=== PATIENT | female | born 1975 | race Caucasian/White ===

== ENCOUNTER 2021-12-12 16:38 | Emergency (ER) | payer OTHER ==
[2021-12-12] MEDS ORDERED: Sodium Chloride 0.9% 1000 ML 1,000 ML IV SCH (17:15)
[2021-12-12] MEDS ORDERED: TORAdol 30 mg Injection IV ONE (17:17)
[2021-12-12] MEDS ORDERED: TORAdol 30 mg Injection ONE (17:20)
[2021-12-12] MEDS ORDERED: Sodium Chloride 0.9% 1000 ML 1,000 ML ONE (17:21)
[2021-12-12 17:23] LABS: Absolute Neutrophil Ct (ANC) 5.19 x10^3/uL (1.4-6.9); Basophil (Absolute #) 0.06 x10^3/uL (0-0.4); Eosinophil % 3.1 % (0.00-5.0); Hematocrit 39.5 % (35-47); Hemoglobin 12.7 g/dL (12.0-16.0); Lymphocytes % 37.3 % (24.0-44.0); Mean Cell Volume 80.3 fL (78-100); Mean Corpuscular Hemoglobin 25.8 pg (26-32); Mean Corpuscular Hgb Concent. 32.2 g/dL (32-36); Mean Platelet Volume 9.5 fL (7.5-11.0); Monocyte (Absolute #) 0.46 x10^3/uL (0.0-1.3); Monocytes % 4.8 % (0.0-12.0); Neutrophil % 53.9 % (36.0-66.0); Platelet Count 289 x10^3/uL (150-450); Red Blood Count 4.92 x10^6/uL (4.1-5.4); Red Cell Distribution Width 14.1 % (11.5-14.0); White Blood Count 9.6 x10^3/uL (4.0-10.5)
[2021-12-12 17:35] LABS: ALBUMIN 4.2 g/dL (3.5-5.0); ALKALINE PHOSPHATASE 82 U/L (38-126); ANION GAP 14.6 MEQ/L (5-15); BLOOD UREA NITROGEN 13 mg/dL (7-17); CHLORIDE 101 mmol/L (98-107); Calcium 9.4 mg/dL (8.4-10.2); Carbon Dioxide 27 mmol/L (22-30); Creatinine 1 0.84 mg/dL (0.52-1.04); EST GLOMERULAR FILTRATION RATE > 60.0 ML/MIN; Glucose 145 mg/dL (74-106); Potassium 3.7 mmol/L (3.5-5.1); SGOT/AST 53 U/L (14-36); SGPT/ALT 55 U/L (0-35); SODIUM 138 mmol/L (137-145); Total Protein 7.8 g/dL (6.3-8.2)
--- NOTE | 2021-12-12 17:52 | ERPHSYRPT ---
- History of Present Illness Time Seen by Provider: 12/12/21 16:55 Source: patient Exam Limitations: no limitations Patient Subjective Stated Complaint: Right sided Triage Nursing Assessment: Patient brought back to ED per w/c and transferred self to bed. Patient A+O X3. Patient's skin pink, warm and dry. Patient complains of right sided flank pain that has been going on for one week 02/16. Patient was seen by PCP and had imaging and labs done yesterday. Patient also complains of left knee pain 03/18 with swelling. Physician History: Patient is a 46-year-old female presents to our ED for evaluation of right-sided flank pain. Pain has been ongoing for approximately 1 week. Patient followed up with her primary care doctor yesterday. Laboratory work-up was performed however we do not have these results available to us today. Pain described as an ache that is localized. No radiation. Pain rated 9 out of 10 however patient appears comfortable and declined pain medication. Patient also complains of left anterior knee pain which is unrelated to her flank pain. Patient requesting a left knee x-ray. Symptoms are mild to moderate in intensity. No specific worsening improving factors. Patient voices no other complaints or concerns at this time. Timing/Duration: week(s) (1 week) Severity: moderate Modifying Factors: Improves With: nothing Associated Symptoms: denies symptoms, No shortness of breath, No diaphoresis, No cough, No chest pain, No fever, No malaise, No syncope, No seizure, No weakness Allergies/Adverse Reactions: latex Allergy (Verified 12/12/21 16:49) Home Medications: Omeprazole 1 tab PO DAILY 12/12/21 [History] Hx Tetanus, Diphtheria Vaccination/Date Given: No Hx Influenza Vaccination/Date Given: Yes Hx Pneumococcal Vaccination/Date Given: No Immunizations Up to Date: Yes Travel Risk - International Travel Have you traveled outside of the country in past 3 weeks: No - Coronavirus Screening Are you exhibiting any of the following symptoms?: No Close contact with a COVID-19 positive Pt in past 14-21 Days: No - Vaccine Status Have you recieved a Covid-19 vaccination: Yes [employer]: [employer] - Vaccination Dates Date of 2cond Vaccination (if applicable): 11/22/2020 Comment: Booster 05/11/21 - Review of Systems Constitutional: No Symptoms, No Fever, No Chills Eyes: No Symptoms Ears, Nose, & Throat: No Symptoms Respiratory: No Symptoms, No Cough, No Dyspnea Cardiac: No Symptoms, No Chest Pain, No Edema, No Syncope Abdominal/Gastrointestinal: No Symptoms, No Abdominal Pain, No Nausea, No Vomiting, No Diarrhea Genitourinary Symptoms: No Symptoms, No Dysuria Musculoskeletal: No Symptoms, No Back Pain, No Neck Pain Skin: No Symptoms, No Rash Neurological: No Symptoms, No Dizziness, No Focal Weakness, No Sensory Changes Psychological: No Symptoms Endocrine: No Symptoms Hematologic/Lymphatic: No Symptoms Immunological/Allergic: No Symptoms All Other Systems: Reviewed and Negative - Past Medical History Pertinent Past Medical History: No Neurological History: No Pertinent History, Migraines ENT History: No Pertinent History Cardiac History: No Pertinent History Respiratory History: No Pertinent History Endocrine Medical History: Diabetes Type II Musculoskeletal History: No Pertinent History GI Medical History: GERD Psycho-Social History: Depression Female Reproductive Disorders: No Pertinent History - Past Surgical History Past Surgical History: Yes Neuro Surgical History: No Pertinent History Cardiac: No Pertinent History Respiratory: No Pertinent History Gastrointestinal: No Pertinent History Genitourinary: No Pertinent History Musculoskeletal: Orthopedic Surgery Female Surgical History: Tubal Ligation Other Surgical History: deviated septum surgery. carpal tunnel - Social History Smoking Status: Current every day smoker How long have you smoked: years Exposure to second hand smoke: Yes Drug Use: none Patient Lives Alone: No - Female History Hx Last Menstrual Period: currently Hx Now: No - Nursing Vital Signs Nursing Vital Signs: Initial Vital Signs Temperature 97.0 F 12/12/21 16:50 Pulse Rate 90 12/12/21 16:50 Respiratory Rate 18 12/12/21 16:50 Blood Pressure 141/79 12/12/21 16:50 O2 Sat by Pulse Oximetry 99 12/12/21 16:50 Pain Scale Pain Intensity 9 - Physical Exam General Appearance: no apparent distress, alert Eye Exam: PERRL/EOMI, eyes nml inspection Ears, Nose, Throat Exam: normal ENT inspection, TMs normal, pharynx normal, moist mucous membranes Neck Exam: normal inspection, non-tender, supple, full range of motion Respiratory Exam: normal breath sounds, lungs clear, airway intact, No respiratory distress Cardiovascular Exam: regular rate/rhythm, normal heart sounds, normal peripheral pulses Gastrointestinal/Abdomen Exam: soft, normal bowel sounds, No tenderness, No mass Back Exam: normal inspection, normal range of motion, No CVA tenderness, No v ertebral tenderness Extremity Exam: normal inspection, normal range of motion, pelvis stable, other (Tenderness palpation anterior left knee. Extremity neurovascular tact dis tally. Compartments are soft. Cap refill less than 2 seconds.) Neurologic Exam: alert, oriented x 3, cooperative, normal mood/affect, nml cerebellar function, nml station & gait, sensation nml, No motor deficits Skin Exam: normal color, warm, dry, No rash Lymphatic Exam: No adenopathy SpO2 Interpretation: normal SpO2: 99 O2 Delivery: Room Air - Course Nursing assessment & vital signs reviewed: Yes - Radiology Exams Knee X-ray Interpretation: Interpreted by me (Mild degenerative arthritis. No fractures or dislocations. No soft tissue abnormalities) - CT Exams Abdomen/Pelvis CT Interpretation: Tele-radiologist Report (22.5 cm fatty hepatomegaly, 1.3 cm calcified splenic cyst, bilateral tubal ligation clips, normal appendix. Remaining abdomen pelvis negative. 1.4 cm left renal cyst) Ordered Tests: Active Orders 24 hr Category Date Time Status EKG-ER Only STAT Care 12/12/21 17:12 Active IV Insertion STAT Care 12/12/21 17:12 Active ABDOMEN AND PELVIS W/0 CONTRAS [CT] Stat Exams 12/12/21 17:12 Taken KNEE (3 VIEWS) Stat Exams 12/12/21 17:13 Taken CBC W DIFF Stat Lab 12/12/21 17:20 Completed CMP Stat Lab 12/12/21 17:20 Completed UA W/RFX CULTURE Stat Lab 12/12/21 17:19 Completed Medication Summary Generic Name Dose Route Start Last Admin Trade Name Freq PRN Reason Stop Dose Admin Sodium Chloride 1,000 mls @ 100 mls/hr 12/12/21 17:15 12/12/21 17:21 Sodium Chloride 0.9% 1000 Ml IV 01/11/22 17:14 100 mls/hr .Q10H FAINA Administration Discontinued Medications Generic Name Dose Route Start Last Admin Trade Name Freq PRN Reason Stop Dose Admin Ketorolac Tromethamine 30 mg 12/12/21 17:17 12/12/21 17:21 Ketorolac Tromethamine 30 Mg/Ml Inj IV 12/12/21 17:18 30 mg STAT ONE Administration Ketorolac Tromethamine Confirm 12/12/21 17:20 Ketorolac Tromethamine 30 Mg/Ml Inj Administered 12/12/21 17:21 Dose 30 mg .ROUTE .STK-MED ONE Lab/Rad Data: Laboratory Result Diagrams 12/12/21 17:20 12/12/21 17:20 Laboratory Results 12/12/21 12/12/21 12/12/21 Range/Units 17:20 17:20 17:19 WBC 9.6 (4.0-10.5) x10^3/uL RBC 4.92 (4.1-5.4) x10^6/uL Hgb 12.7 (12.0-16.0) g/dL Hct 39.5 (35-47) % MCV 80.3 (78-100) fL MCH 25.8 L (26-32) pg MCHC 32.2 (32-36) g/dL RDW 14.1 H (11.5-14.0) % Plt Count 289 (150-450) x10^3/uL MPV 9.5 (7.5-11.0) fL Gran % 53.9 (36.0-66.0) % Immature Gran % (Auto) 0.3 (0.00-0.4) % Nucleat RBC Rel Count 0.0 (0.00-0.1) % Eos # (Auto) 0.30 (0-0.5) x10^3/uL Immature Gran # (Auto) 0.03 (0.00-0.03) x10^3u/L Absolute Lymphs (auto) 3.60 (1.0-4.6) x10^3/uL Absolute Monos (auto) 0.46 (0.0-1.3) x10^3/uL Absolute Nucleated RBC 0.00 (0.00-0.01) x10^3u/L Lymphocytes % 37.3 (24.0-44.0) % Monocytes % 4.8 (0.0-12.0) % Eosinophils % 3.1 (0.00-5.0) % Basophils % 0.6 (0.0-0.4) % Absolute Granulocytes 5.19 (1.4-6.9) x10^3/uL Basophils # 0.06 (0-0.4) x10^3/uL Sodium 138 (137-145) mmol/L Potassium 3.7 (3.5-5.1) mmol/L Chloride 101 (98-107) mmol/L Carbon Dioxide 27 (22-30) mmol/L Anion Gap 14.6 (5-15) MEQ/L BUN 13 (7-17) mg/dL Creatinine 0.84 (0.52-1.04) mg/dL Estimated GFR > 60.0 ML/MIN Glucose 145 H (74-106) mg/dL Calcium 9.4 (8.4-10.2) mg/dL Total Bilirubin 0.40 (0.2-1.3) mg/dL AST 53 H (14-36) U/L ALT 55 H (0-35) U/L Alkaline Phosphatase 82 (38-126) U/L Serum Total Protein 7.8 (6.3-8.2) g/dL Albumin 4.2 (3.5-5.0) g/dL Urinalys Dipstick Clnc MAIN LAB Urine Color YELLOW (YELLOW) Urine Appearance CLEAR (CLEAR) Urine pH 5.5 (5-6) Ur Specific [place] >=1.030 (1.005-1.025) POC Urine Protein Conf NEGATIVE (Negative) Urine Ketones NEGATIVE (NEGATIVE) Urine Nitrite NEGATIVE (NEGATIVE) Urine Bilirubin NEGATIVE (NEGATIVE) Urine Urobilinogen 0.2 (0-1) mg/dL Urine Leukocytes NEGATIVE (NEGATIVE) Urine WBC (Auto) 3-5 (0-5) /HPF Urine RBC (Auto) 6-10 (0-2) /HPF U Epithel Cells (Auto) RARE (FEW) /HPF Urine Bacteria (Auto) NONE (NEGATIVE) /HPF Urine RBC LARGE (0-5) Gideon/ul Urine Mucus (Auto) SLIGHT (NEGATIVE) /HPF Ur Culture Indicated? NO Urine Glucose NEGATIVE (NEGATIVE) mg/dL - Progress Progress: improved Progress Note: Patient reassessed. Patient is comfortable. Vitals are stable. Work-up reveals a fatty hepatomegaly and a 1.3 cm calcified splenic cyst, 1.4 cm left renal cyst. remaining abdomen pelvis negative. X-ray left knee shows mild arthritis however no fracture dislocations. No indication for further work-up a t this time. Will discharge home. Patient agrees to follow-up with primary care doctor within 48 hours for evaluation. Portions of this note were created with voice recognition technology. There may be grammatical, spelling, punctuation or sound alike errors 12/12/21 19:54 Counseled pt/family regarding: lab results, diagnosis, need for follow-up, rad results - Departure Departure Disposition: Home Clinical Impression: Fatty hepatomegaly, Calcified splenic cyst, Renal cyst, left Condition: Stable Critical Care Time: No Referrals: CLARI SANCHEZ, MANAGER ENTRY [Primary Care Provider] - Follow up/PCP as directed Additional Instructions: Discharge/Care Plan ESME TURNER was seen on 12/12/21 in the Emergency Room. The patient was counseled regarding Diagnosis,Lab results, Imaging studies, need for follow up and when to return to the Emergency Room. Prescriptions given: Discharge Note I have spoken with the patient and/or caregivers. I have explained the patient's condition, diagnosis and treatment plan based on the information available to me at this time. I have answered the patient's and/or caregiver's questions and addressed any concerns. The patient and/or caregivers have as good understanding of the patient's diagnosis, condition and treatment plan as can be expected at this point. The vital signs have been stable. The patient's condition is stable and appropriate for discharge from the emergency department. The patient will pursue further outpatient evaluation with the primary care physician or other designated or consulting physician as outlined in the discharge instructions. The patient and/or caregivers are agreeable to this plan of care and follow-up instructions have been explained in detail. The patient and/or caregivers have received these instruction. The patient/and or caregivers are aware that any significant change in condition or worsening of symptoms should prompt an immediate return to this or the closest emergency department or call 911.
[2021-12-12 17:56] LABS: Appearance CLEAR (CLEAR); Bilirubin NEGATIVE (NEGATIVE); Dipstick done @ ? MAIN LAB; Glucose NEGATIVE (NEGATIVE); Ketones NEGATIVE (NEGATIVE); Nitrite NEGATIVE (NEGATIVE); Ph 5.5 (5-6); Protein,Urine Dip NEGATIVE (Negative); RBC LARGE Ery/ul (0-5); Specific Gravity >=1.030 (1.005-1.025); Urobilinogen 0.2 mg/dL (0-1)
[2021-12-12 18:00] LABS: Epithelial Cells RARE /HPF (FEW); Mucus SLIGHT /HPF (NEGATIVE)
[2021-12-12 18:01] LABS: Urine Cultured Indicated? NO
[2021-12-12 20:06] VITALS: BP 131/72; PULSE 71; O2SAT 98
--- NOTE | 2021-12-13 08:33 | XRAY ---
Indication: Pain. No known injury. Comparison: None 3 view left knee demonstrates minimal medial joint space narrowing/spurring, tiny patella spurring, and medial lower leg serpiginous venous varicosities. No other bony, articular, or soft tissue abnormalities.
--- NOTE | 2021-12-13 08:38 | XRAY ---
Indication: Right flank pain 2 weeks. Multiple contiguous axial images obtained through the abdomen and pelvis without contrast using renal stone protocol. Comparison: None Lung bases clear. Heart is not enlarged. No renal calculus or evidence for obstructive uropathy in either system. Left lower kidney demonstrates 1.4 cm exophytic cyst. Stomach distended with food/fluid. Noncontrasted stomach and bowel loops appear nonobstructed. Normal appendix. No free fluid/air. Gallbladder contracted without gallstones. Incidental 22.5 cm fatty hepatomegaly, 1.3 cm calcified splenic cyst, and bilateral tubal ligation clips. Remaining liver, gallbladder, pancreas, spleen, adrenal glands, kidneys, ureters, bladder, and uterus are unremarkable for noncontrast exam. Very minimal aortic calcifications without AAA. Osseous structures intact with minimal degenerative changes throughout the spine. Impression: 1. Negative renal calculus or evidence for obstructive uropathy. 2. Incidental left renal cyst, fatty hepatomegaly, and small calcified splenic cyst. 3. Remaining CT abdomen/pelvis without contrast exam is negative.
== END 2021-12-12 20:06 | disposition home or self-care (01) ==
LOC: ED 16:38
DX: K76.0 Fatty (change of) liver, not elsewhere classified (principal); D73.4 Cyst of spleen; Q61.01 Congenital single renal cyst; R10.9 Unspecified abdominal pain; M25.562 Pain in left knee; E11.9 Type 2 diabetes mellitus without complications; Z72.0 Tobacco use
CPT/HCPCS: 36000; 36415; 73562; 74176; 80053; 81015; 85025; 93005; 96374; 99284; J1885